=== PATIENT | female | born 1965 | race Caucasian/White ===

== ENCOUNTER → 2019-09-14 | Outpatient (CLI) | payer BC ==
--- NOTE | 2019-09-14 21:57 | MR ---
EXAMINATION TYPE: MR iac wo/w con DATE OF EXAM: 09/14/2019 COMPARISON: NONE HISTORY: Vertigo. Balance problem in ears with some dizziness. TECHNIQUE: Multiplanar, multisequence images of the brain and brainstem is performed without and with IV contras t, utilizing 6.5 mL intravenous Gadavist . Acoustic nerve disorder protocol. FINDINGS: Diffusion weighted images demonstrate no evidence of a recent infarct or other diffusion ab normality. There is some prominence of CSF over the bilateral frontal lobe superiorly consistent wit h mild generalized frontal lobe atrophy. No significant white matter changes are present bilaterally. Midline structures demonstrate normal morphology. The craniocervical junction appears within normal limits. Normal vascular flow voids are seen. Mild to moderate mucosal thickening involving ethmoid si nuses bilaterally. Nasal septum deviated to right of midline. Globes are intact bilaterally. No suspicious fluid signal is seen in the mastoid air cells bilaterally. The vestibulocochlear comple xes are symmetric and thought within normal limits. No suspicious enhancing cerebellopontine angle ma ss is identified bilaterally. IMPRESSION: 1. Dedicated IAC imaging thought within normal limits. Cause of vertigo not identified. 2. Mild bilateral generalized frontal lobe atrophy and mild to moderate chronic ethmoid sinusitis.
== END | disposition home or self-care (01) ==
LOC: RADMRIMAIN 20:30
PROVIDERS: ATTEND Otolaryngology
DX: G31.9 Degenerative disease of nervous system, unspecified (principal)
CPT/HCPCS: 70553; A9585

== ENCOUNTER → 2019-12-22 | Outpatient (CLI) | payer BC ==
--- NOTE | 2019-12-29 20:11 | EEG ---
ELECTROENCEPHALOGRAM REPORT VIDEO-ASSISTED ELECTRONYSTAGMOGRAM: VNG INDICATIONS: Dizziness starting in March 2019, gradual onset, associated with allergies and chiropractic adjustment and staying the same. Dizziness occurs 1-2 times a day, lasting 10-20 seconds at a time and influenced by positions such as going from lying to seated, looking up or head-back position, bending over or head-down position, and in open spaces. The patient denies any hearing loss but has bilateral pulsatile tinnitus. VNG FINDINGS: Saccades shows intact peak velocities, accuracies and latencies. Gaze with fixation shows no nystagmus on any of the directions of gaze, including centrally with vision denied. Tracking shows smooth tracking; no break-ups. Optokinetic nystagmus shows no significant asymmetry. Static position testing with eyes open in all 6 positions showed no nystagmus. However, with vision denied the patient has mild nystagmus in the head-left position and the right side position. Scuddy-Hallpike maneuvers precipitated dizziness on either side with mild nystagmus. Caloric testing shows a bilateral weak caloric response generating 8 degrees/second from the right and 7 degrees/second from the left. IMPRESSIONS: 1. Benign positional vertigo is suggested, given the positive dizziness response with mild nystagmus on both the right side and the left side, bilateral. 2. Caloric testing showed bilateral caloric weakness. Another test such as the head thrust test or, if available, active intensive rotation testing, is required to confirm presence of bilateral vestibular dysfunction. 3. Other features of this VNG are unremarkable. No evidence for central causation. MMODL / IJN: [id number] /
== END | disposition home or self-care (01) ==
LOC: NEUROMAIN 07:59
PROVIDERS: ATTEND Otolaryngology
DX: R42 Dizziness and giddiness (principal)
CPT/HCPCS: 92537; 92540